=== PATIENT | female | born 1965 | race Caucasian/White ===

== ENCOUNTER 2017-11-25 05:21 | Day surgery (SDC) | payer OTHER ==
[2017-11-24 17:00] VITALS: BMI 26.7
--- NOTE | 2017-11-25 10:00 | HP ---
History & Physical Update - History History: No Change - Physical Physical: No Change - Assessment Assessment: No Change - Plan Plan: No Change (No change in HP)
[2017-11-25] MEDS ORDERED: IBUPROFEN 400 MG TABLET (FP) PO PRN (10:01)
[2017-11-25] MEDS ORDERED: ACETAMINOPHEN 325 MG TABLET (FP) PO PRN (10:01)
--- NOTE | 2017-11-25 10:01 | OP ---
Operative Note - Note: Operative Date: 11/25/17 Pre-Operative Diagnosis: Endometrial polyps Operation: Hysteroscopic Myomectomy. Suction DC Findings: cervical polyp Post-Operative Diagnosis: Same as Pre-op Surgeon: Chayito Cody Anesthesia: General Specimens Removed: cervical polyp Estimated Blood Loss (mls): 5 Operative Report Dictated: Yes
[2017-11-25] MEDS ORDERED: MIDAZOLAM HCL 2 MG/2 ML SINGLE DOSE VIAL ONE (10:05)
[2017-11-25] MEDS ORDERED: DEXAMETHASONE SOD PHOSPHATE 4 MG/1 ML VIAL ONE (10:16)
[2017-11-25] MEDS ORDERED: LIDOCAINE HCL/PF 2% SDV 5ML VIAL ONE (10:17)
[2017-11-25] MEDS ORDERED: PROPOFOL 20 ML ONE (10:18)
[2017-11-25] MEDS ORDERED: ceFAZolin SODIUM 1 GM VIAL ONE (10:33)
[2017-11-25] MEDS ORDERED: ceFAZolin SODIUM 1 GM VIAL IVPB ONE (10:33)
[2017-11-25] MEDS ORDERED: ONDANSETRON 4 MG/2 ML VIAL IVPUSH PRN (11:23)
[2017-11-25] MEDS ORDERED: oxyCODONE HCL 5 MG TABLET PO PRN (11:23)
[2017-11-25] MEDS ORDERED: LACTATED RINGERS SOLUTION 1,000 ML IV SCH (11:30)
[2017-11-25 12:58] VITALS: TEMP 97.1
[2017-11-25 13:56] VITALS: BP 132/75; PULSE 56
--- NOTE | 2017-11-26 14:43 | PATH ---
Surgical Pathology Report Patient Name: JAYSHREE TAPIA [facility]. Rec. #: [id number] /Age/Gender: 1965 (Age: 52) / F Account: [id number] Location: [facility] SURGICAL Taken: 11/25/2017 Received: 11/25/2017 Reported: 11/26/2017 Physicians: Chayito Cody M.D. Specimen(s) Received A: CERVICAL POLYP B: ENDOMETRIAL CURETTINGS Clinical History Submucosal myoma Final Diagnosis A. CERVICAL POLYP, POLYPECTOMY: CERVICAL POLYP. B. ENDOMETRIUM, CURETTAGE: SCANT INACTIVE ENDOMETRIUM AND FEW STRIPS OF BENIGN SQUAMOUS AND ENDOCERVICAL GLANDULAR EPITHELIUM. Electronically Signed Virgie Hinds M.D. Gross Description A. Received in formalin labeled "cervical polyp," is a 1.3 x 0.9 x 0.3 cm aggregate of jenkins, irregular to polypoid soft tissue fragments admixed with mucus. The formalin is filtered and the specimen is entirely submitted in one cassette. B. Received in formalin labeled "endometrial curettings," is a 2.0 x 1.3 x 0.3 cm aggregate of jenkins red soft tissue fragments. The formalin is filtered and the specimen is entirely submitted in one cassette. /11/25/201711/25/2017
--- NOTE | 2017-12-23 12:52 | OP ---
DATE OF OPERATION: 11/25/2017 PREOPERATIVE DIAGNOSIS: Endometrial polyps. OPERATION: Hysteroscopic myomectomy and suction dilatation and curettage. POSTOPERATIVE DIAGNOSIS: Endometrial polyps. SURGEON: Chayito Cody MD ANESTHESIA: General. ESTIMATED BLOOD LOSS: 5 mL. FINDINGS: Endometrial polyps seen in the endometrial cavity. PROCEDURE: Patient was taken to the operating room, placed in dorsal lithotomy position, prepped and draped in the usual sterile fashion. A time-out was performed, and according to hospital regulations, a speculum was placed in the vagina, anterior lip of the cervix was grasped with a single-tooth tenaculum. Cervix was then dilated to accommodate the operative hysteroscope. Operative hysteroscope was introduced, and cervical polyp was seen, and the cervical polyp was then coagulated and removed and submitted to Pathology followed by a suction dilatation and curettage. All contents were submitted to Pathology. All instruments were then removed. Patient tolerated the procedure well and was taken to the recovery room in stable condition. CHAYITO CODY M.D. [id number]
== END 2017-11-25 13:56 | disposition home or self-care (01) ==
LOC: JASU-SURG 05:21
PROVIDERS: ATTEND Obstetrics & Gynecology
PROC: 0UBC8ZX Excision of Cervix, Via Natural or Artificial Opening Endoscopic, Diagnostic (ICD-10-PCS; principal; 2017-11-25 09:00)
PROC: 0UDB8ZX Extraction of Endometrium, Via Natural or Artificial Opening Endoscopic, Diagnostic (ICD-10-PCS; 2017-11-25 09:00)
DX: N84.0 Polyp of corpus uteri (principal)
CPT/HCPCS: 88305-TC; 94760